=== PATIENT | female | born 1985 | race Hispanic/Latino ===

== ENCOUNTER 2021-11-09 08:40 | Emergency (ER) | payer SELFPAY ==
[~2021-11-09] VITALS: Ht 175.3 cm; Wt 59.0 kg
[2021-11-09] MEDS: ACETAMINOPHEN 500 MG TABLET PO ONE (09:19)
[2021-11-09] MEDS: ONDANSETRON ODT 4MG TAB SL ONE (09:20)
[2021-11-09 09:30] LABS: APPEARANCE,URINE Turbid (CLEAR); BILIRUBIN,URINE Negative (NEGATIVE); COLOR,URINE Yellow (YELLOW); GLUCOSE, URINE (UA) Negative (NEGATIVE); KETONES,URINE Negative (NEGATIVE); LEUKOCYTE ESTERASE ,URINE Large (NEGATIVE); NITRATE,URINE Negative (NEGATIVE); OCCULT BLOOD,URINE Moderate (NEGATIVE); PH,URINE 6.5 (5.0-8.0); PROTEIN,URINE POS 2+ mg/dL (NEGATIVE); UROBILINOGEN,URINE 0.2 mg/dL (0.2-1.0)
[2021-11-09 09:36] LABS: HCG,QUAL RESULT NEGATIVE (NEGATIVE)
[2021-11-09 09:39] LABS: BACTERIA,URINE Few /HPF (None Seen); SQUAMOUS EPITHELIAL CELL,UR Rare /HPF (0-2)
[2021-11-09 09:40] LABS: WBC,URINE >100 /HPF (0-1)
[2021-11-09 10:07] LABS: CREATININE 0.6 mg/dL (0.5-1.5); POTASSIUM 3.7 mmol/L (3.5-5.1)
[2021-11-09 10:12] LABS: ALBUMIN 3.5 g/dL (3.5-5.0); BILIRUBIN,TOTAL 0.4 mg/dL (0.2-1.0)
[2021-11-09] MEDS: CEFTRIAXONE 1G VIAL IVP ONE (10:26)
[2021-11-09 10:28] LABS: BASOPHILS % (AUTO) 0.4 % (0.0-5.0); EOSINOPHILS % (AUTO) 0.5 % (0.0-8.0); HEMATOCRIT 41.9 % (36-48); LYMPHOCYTES % (AUTO) 13.7 % (21.0-51.0); MEAN CORPUSCULAR HEMOGLOBIN 31.4 pg (27.0-33.0); MEAN CORPUSCULAR HGB CONC 32.5 g/dL (32.0-36.0); MEAN CORPUSCULAR VOLUME 96.8 fL (79-99); MONOCYTES % (AUTO) 10.2 % (3.0-13.0); NEUTROPHILS % (AUTO) 74.4 % (40.0-77.0); PLATELET COUNT (AUTO) 266 K/uL (130-400); RED BLOOD CELL COUNT(AUTO) 4.33 MIL/uL (4.00-5.50); RED CELL DISTRIBUTION WIDTH 14.6 % (11.0-15.5); WHITE BLOOD COUNT (AUTO) 9.5 K/uL (4.8-10.8)
[2021-11-09] MEDS ORDERED: IBUP-2070 PO (11:38)
[2021-11-09] MEDS ORDERED: ONDA4TAB10 PO (11:38)
[2021-11-09] MEDS ORDERED: SULF1TAB42 PO (11:38)
[2021-11-09 11:49] VITALS: BP 122/64
== END 2021-11-09 12:11 | disposition home or self-care (01) ==
LOC: EDH 08:40
DX: N12 Tubulo-interstitial nephritis, not specified as acute or chronic (principal); F31.9 Bipolar disorder, unspecified; F41.9 Anxiety disorder, unspecified
CPT/HCPCS: 36415; 80053; 81001; 81025; 85025; 87077; 87088; 87186; 87486; 87797; 96374; 99283; J0696

== ENCOUNTER 2022-05-31 00:59 | Emergency (ER) | payer OTHER ==
[~2022-05-31] VITALS: Ht 175.3 cm; Wt 63.5 kg
[~2022-05-31 00:59] MED LIST: IBUP-2070 PO; ONDA4TAB10 PO; SULF1TAB42 PO
[2022-05-31] MEDS ORDERED: IBUPROFEN 800 MG TAB PO ONE (03:00)
[2022-05-31 03:21] VITALS: BP 117/73
== END 2022-05-31 03:40 | disposition home or self-care (01) ==
LOC: EDH 00:59
DX: S00.03XA Contusion of scalp, initial encounter (principal); Z79.1 Long term (current) use of non-steroidal anti-inflammatories (NSAID); Z59.00 Homelessness unspecified; W22.8XXA Striking against or struck by other objects, initial encounter; Y93.89 Activity, other specified; Y92.89 Other specified places as the place of occurrence of the external cause; Y99.8 Other external cause status
CPT/HCPCS: 70450; 81025